=== PATIENT | male | born 1985 | race Caucasian/White ===

== ENCOUNTER 2018-05-10 04:57 | Emergency (ER) | payer OTHER ==
[~2018-05-10] VITALS: Ht 165.1 cm; Wt 56.7 kg
[2018-05-10 05:28] LABS: ABSOLUTE BASOPHILS 0.1 thou/uL (0.0-0.2); ABSOLUTE EOSINOPHILS 0.2 thou/uL (0.0-0.7); ABSOLUTE LYMPHOCYTES 1.8 thou/uL (0.8-5.3); ABSOLUTE MONOCYTES 0.9 thou/uL (0.0-1.2); ABSOLUTE NEUTROPHILS 14.1 thou/uL (1.6-8.1); BASOPHILS 0.6 %; EOSINOPHILS 1.2 %; HEMATOCRIT 47.2 % (42.0-52.0); LYMPHOCYTES 10.6 %; MCH 32.2 pg (26.0-34.0); MCHC 33.8 g/dL (28.0-37.0); MCV 95.2 fL (80.0-100.0); MONOCYTES 5.5 %; MPV 7.8 fl. (7.2-11.1); NUCLEATED RBCS 0 /100WBC; PLATELET COUNT* 174 thou/uL (150-400); POLYS 82.1 %; RBC 4.96 mil/uL (4.50-6.00); RDW-CV 12.7 % (10.5-14.5); WBC 17.2 thou/uL (4.0-11.0)
[2018-05-10 05:39] LABS: CALCIUM 8.4 mg/dL (8.5-10.1); CREATININE 1.4 mg/dL (0.6-1.3); POTASSIUM 3.3 mmol/L (3.5-5.1)
[2018-05-10 05:50] LABS: ALBUMIN 3.4 g/dL (3.4-5.0); TOTAL BILIRUBIN 0.9 mg/dL (<0.1-1.0); TOTAL PROTEIN 6.6 g/dL (6.4-8.2); TROPONIN-I LEVEL 0.53 ng/mL (<0.06)
[2018-05-10 05:57] LABS: APTT 25.9 Seconds (25.0-31.3); INR 1.1; PROTIME 11.1 Seconds (9.20-11.50)
[2018-05-10 06:39] VITALS: BP 112/66
--- NOTE | 2018-05-10 14:20 | EKG ---
[place] [address] ELECTROCARDIOGRAM REPORT Name: OSMEL DOLAN Room: [facility]#: [id number] Admission: 05/10/18 Attend Phys: Discharge: 05/10/18 Date of : 81 Report #: [id number] THIS REPORT FOR: //name// [facility] ED Test Date: 2018-05-10 Test Time: 05:17:21 Pat Name: OSMEL DOLAN Department: Room: Gender: M [employer]: [employer] : 1985 Requested By: Lillian Campa Order Number: [id number] MD: Filemon Arguello Measurements Intervals [place] Rate: 103 P: 66 AL: 143 QRS: 58 QRSD: 89 T: 173 QT: 344 QTc: 451 Interpretive Statements Sinus tachycardia Left ventricular hypertrophy with repolarization abnormality Right atrial enlargement Cannot rule out anteroseptal infarct, old Repol abnrm suggests ischemia, lateral leads No previous ECG available for comparison Electronically Signed On 05-10-2018 14:19:56 [employer]OWS SERV[employer] SPECIALIST by Filemon Arguello [email or web address] <ELECTRONICALLY SIGNED> By: Filemon Arguello MD, [facility] 05/10/18 1419 0517 0517 Filemon Arguello MD, [facility] /EPI
[2018-05-10 17:09] LABS: HEPATITIS B SURFACE AG Negative (Negative)
== END 2018-05-10 07:49 | disposition short-term general hospital (02) ==
LOC: M.ERS 04:57
PROVIDERS: Personal Emergency Response Attendant
DX: I31.2 Hemopericardium, not elsewhere classified (principal); I71.2 Thoracic aortic aneurysm, without rupture